=== PATIENT | male | born 1945 | race Caucasian/White ===

== ENCOUNTER 2019-06-16 15:56 | Emergency (ER) | payer MEDICARE ==
[2019-06-16 16:39] VITALS: TEMP 97.8
[2019-06-16 17:11] LABS: Basophils % (A) 0 %; Eosinophils # (A) 0.1 k/uL (0-0.7); Eosinophils % (A) 2 %; HCT 48.9 % (39.0-53.0); HGB 15.7 gm/dL (13.0-17.5); Lymphocytes # (A) 1.3 k/uL (1.0-4.8); Lymphocytes % (A) 22 %; MCH 29.5 pg (25.0-35.0); MCHC 32.1 g/dL (31.0-37.0); MCV 92.2 fL (80.0-100.0); Mean Platelet Volume 8.4; Monocytes # (A) 0.4 k/uL (0-1.0); Monocytes % (A) 7 %; Neutrophils # (A) 3.8 k/uL (1.3-7.7); Neutrophils % (A) 65 %; Platelet Count 235 k/uL (150-450); RBC 5.31 m/uL (4.30-5.90); RDW 13.2 % (11.5-15.5); WBC 5.9 k/uL (3.8-10.6)
[2019-06-16 17:23] LABS: Appearance,Urine Clear (Clear); Bilirubin,Urine Negative (Negative); Blood,Urine Negative (Negative); Color,Urine Yellow; Glucose,Urine (UA) Negative (Negative); Ketones,Urine Negative (Negative); Leukocyte Esterase,Urine Negative (Negative); Nitrite,Urine Negative (Negative); PH, Urine 5.5 (5.0-8.0); Protein,Urine Trace (Negative); Urobilinogen,Urine <2.0 mg/dL (<2.0)
[2019-06-16 17:26] LABS: Albumin 4.4 g/dL (3.5-5.0); Calcium 9.1 mg/dL (8.4-10.2); Partial Thromboplastin Time 28.2 sec (22.0-30.0); Potassium 4.3 mmol/L (3.5-5.1); Prothrombin Time 10.3 sec (9.0-12.0); Total Bilirubin 0.7 mg/dL (0.2-1.3); Total Protein 7.1 g/dL (6.3-8.2)
--- NOTE | 2019-06-16 17:27 | ED ---
Recheck HPI - General Source: patient Mode of arrival: ambulatory Limitations: no limitations <Coleen Alegre - Last Filed: 06/16/19 17:26> <Ranjit Lepe - Last Filed: 06/16/19 18:18> - General Chief Complaint: Recheck/Abnormal Lab/Rx Stated Complaint: poss heart murmur - History of Present Illness Initial Comments: Patient sent from PCPs office for EKG changes, no chest pain shortness of breath. He went to physician's office for diarrhea, dehydration concerns Labs sent (Coleen Alegre) - Related Data Allergies Allergy/AdvReac Type Severity Reaction Status Date / Time No Known Allergies Allergy Verified 06/16/19 16:39 Review of Systems ROS Other: All systems not noted in ROS Statement are negative. <Coleen Alegre - Last Filed: 06/16/19 17:26> ROS Other: All systems not noted in ROS Statement are negative. <Ranjit Lepe - Last Filed: 06/16/19 18:18> ROS Statement: Those systems with pertinent positive or pertinent negative responses have been documented in the HPI. Past Medical History Past Medical History: No Reported History History of Any Multi-Drug Resistant Organisms: None Reported Past Surgical History: Hernia Repair Past Psychological History: No Psychological Hx Reported Smoking Status: Never smoker Past Alcohol Use History: Occasional Past Drug Use History: None Reported <Coleen Alegre - Last Filed: 06/16/19 17:26> General Exam Limitations: no limitations <Coleen Alegre - Last Filed: 06/16/19 17:26> Course Vital Signs 06/16/19 16:35 Temperature 97.8 F Pulse Rate 72 Respiratory 20 Rate Blood Pressure 171/98 O2 Sat by Pulse 99 Oximetry Medical Decision Making - Lab Data Result diagrams: 06/16/19 16:40 <Coleen Alegre - Last Filed: 06/16/19 17:26> - Lab Data Result diagrams: 06/16/19 16:40 06/16/19 16:40 <Ranjit Lepe - Last Filed: 06/16/19 18:18> - Lab Data Lab Results 06/16/19 06/16/19 06/16/19 Range/Units 16:40 16:40 16:40 WBC 5.9 (3.8-10.6) k/uL RBC 5.31 (4.30-5.90) m/uL Hgb 15.7 (13.0-17.5) gm/dL Hct 48.9 (39.0-53.0) % MCV 92.2 (80.0-100.0) fL MCH 29.5 (25.0-35.0) pg MCHC 32.1 (31.0-37.0) g/dL RDW 13.2 (11.5-15.5) % Plt Count 235 (150-450) k/uL Neutrophils % 65 % Lymphocytes % 22 % Monocytes % 7 % Eosinophils % 2 % Basophils % 0 % Neutrophils # 3.8 (1.3-7.7) k/uL Lymphocytes # 1.3 (1.0-4.8) k/uL Monocytes # 0.4 (0-1.0) k/uL Eosinophils # 0.1 (0-0.7) k/uL Basophils # 0.0 (0-0.2) k/uL PT 10.3 (9.0-12.0) sec INR 1.0 (<1.2) APTT 28.2 (22.0-30.0) sec Sodium 139 (137-145) mmol/L Potassium 4.3 (3.5-5.1) mmol/L Chloride 108 H (98-107) mmol/L Carbon Dioxide 23 (22-30) mmol/L Anion Gap 8 mmol/L BUN 24 H (9-20) mg/dL Creatinine 1.06 (0.66-1.25) mg/dL Est GFR (CKD-EPI)AfAm 81 (>60 ml/min/1.73 sqM) Est GFR (CKD-EPI)NonAf 70 (>60 ml/min/1.73 sqM) Glucose 95 (74-99) mg/dL Calcium 9.1 (8.4-10.2) mg/dL Total Bilirubin 0.7 (0.2-1.3) mg/dL AST 32 (17-59) U/L ALT 24 (4-49) U/L Alkaline Phosphatase 86 (38-126) U/L Troponin I (0.000-0.034) ng/mL Total Protein 7.1 (6.3-8.2) g/dL Albumin 4.4 (3.5-5.0) g/dL Urine Color Urine Appearance (Clear) Urine pH (5.0-8.0) Ur Specific [place] (1.001-1.035) Urine Protein (Negative) Urine Glucose (UA) (Negative) Urine Ketones (Negative) Urine Blood (Negative) Urine Nitrite (Negative) Urine Bilirubin (Negative) Urine Urobilinogen (<2.0) mg/dL Ur Leukocyte Esterase (Negative) 06/16/19 06/16/19 Range/Units 16:40 16:40 WBC (3.8-10.6) k/uL RBC (4.30-5.90) m/uL Hgb (13.0-17.5) gm/dL Hct (39.0-53.0) % MCV (80.0-100.0) fL MCH (25.0-35.0) pg MCHC (31.0-37.0) g/dL RDW (11.5-15.5) % Plt Count (150-450) k/uL Neutrophils % % Lymphocytes % % Monocytes % % Eosinophils % % Basophils % % Neutrophils # (1.3-7.7) k/uL Lymphocytes # (1.0-4.8) k/uL Monocytes # (0-1.0) k/uL Eosinophils # (0-0.7) k/uL Basophils # (0-0.2) k/uL PT (9.0-12.0) sec INR (<1.2) APTT (22.0-30.0) sec Sodium (137-145) mmol/L Potassium (3.5-5.1) mmol/L Chloride (98-107) mmol/L Carbon Dioxide (22-30) mmol/L Anion Gap mmol/L BUN (9-20) mg/dL Creatinine (0.66-1.25) mg/dL Est GFR (CKD-EPI)AfAm (>60 ml/min/1.73 sqM) Est GFR (CKD-EPI)NonAf (>60 ml/min/1.73 sqM) Glucose (74-99) mg/dL Calcium (8.4-10.2) mg/dL Total Bilirubin (0.2-1.3) mg/dL AST (17-59) U/L ALT (4-49) U/L Alkaline Phosphatase (38-126) U/L Troponin I <0.012 (0.000-0.034) ng/mL Total Protein (6.3-8.2) g/dL Albumin (3.5-5.0) g/dL Urine Color Yellow Urine Appearance Clear (Clear) Urine pH 5.5 (5.0-8.0) Ur Specific [place] 1.030 (1.001-1.035) Urine Protein Trace H (Negative) Urine Glucose (UA) Negative (Negative) Urine Ketones Negative (Negative) Urine Blood Negative (Negative) Urine Nitrite Negative (Negative) Urine Bilirubin Negative (Negative) Urine Urobilinogen <2.0 (<2.0) mg/dL Ur Leukocyte Esterase Negative (Negative) Disposition <Coleen Alegre - Last Filed: 06/16/19 17:26> Is patient prescribed a controlled substance at d/c from ED?: No <Ranjit Lepe - Last Filed: 06/16/19 18:18> Clinical Impression: Diarrhea, Enteritis Disposition: HOME SELF-CARE Condition: Good Instructions (If sedation given, give patient instructions): Gastroenteritis (ED), Dehydration (ED), Acute Diarrhea (ED) Referrals: None,Stated [Primary Care Provider] - 1-2 days
[2019-06-16 18:26] VITALS: BP 142/73; PULSE 76; RESP 16
== END 2019-06-16 18:24 | disposition home or self-care (01) ==
LOC: EC 15:56
DX: K52.9 Noninfective gastroenteritis and colitis, unspecified (principal)
CPT/HCPCS: 36415; 80053; 81003; 84484; 85025; 85610; 85730; 93005; 99284

== ENCOUNTER 2023-12-22 10:01 | Observation (INO) | payer MEDICARE ==
--- NOTE | 2023-12-22 11:13 | ED ---
Neuro HPI - General Chief Complaint: Neuro Symptoms/Deficit Stated Complaint: Slurred speech Time Seen by Provider: 12/22/23 11:11 Source: patient, family, RN notes reviewed Mode of arrival: wheelchair Limitations: no limitations - History of Present Illness Is the patient presenting with stroke symptoms?: No Initial Comments: 78-year-old male presenting with chief complaint of slurred speech x 5 days. He also reports involuntary jerking movements of his arms and trouble with his memory since Sunday as well. He has never had this before. Denies headache, numbness, tingling, weakness of extremities, vision changes. He takes Keppra for seizure disorder, states he has been on this for 3 years without any change of dose. Denies any recent change in medications. Does not take any psych medications. He follows with neurologist Dr. Davis. Past medical history also includes hyperlipidemia and hypertension. - Related Data Home Medications: Home Medications Medication Instructions Recorded Confirmed ALPRAZolam [Xanax] 0.25 mg PO DIRECTED PRN 12/22/23 12/22/23 Aspirin EC [Ecotrin Low Dose] 81 mg PO DAILY 12/22/23 12/22/23 Atorvastatin [Lipitor] 40 mg PO DAILY 12/22/23 12/22/23 levETIRAcetam [Keppra] 500 mg PO BID 12/22/23 12/22/23 lisinopriL [Zestril] 5 mg PO DAILY 12/22/23 12/22/23 Allergies/Adverse Reactions: Allergies Allergy/AdvReac Type Severity Reaction Status Date / Time No Known Allergies Allergy Verified 12/22/23 15:29 Review of Systems ROS Statement: Those systems with pertinent positive or pertinent negative responses have been documented in the HPI. ROS Other: All systems not noted in ROS Statement are negative. General Exam - General Exam Comments Initial Comments: Visual Physical Exam Vital signs reviewed General: Well-appearing, nontoxic, no acute distress. Head: Normocephalic, atraumatic Eyes: PERRLA, EOMI ENT: Airway patent Chest: Nonlabored breathing Skin: No visual rash, normal skin tone Neuro: Alert and oriented 3 Musculoskeletal: No gross abnormalities Limitations: no limitations General appearance: alert, in no apparent distress, other (Patient has intermittent spastic movement of right upper extremity and facial muscles during examination) Head exam: Present: atraumatic, normocephalic, normal inspection Eye exam: Present: normal appearance, PERRL, EOMI. Absent: scleral icterus, conjunctival injection, periorbital swelling ENT exam: Present: normal exam, mucous membranes moist Neck exam: Present: normal inspection. Absent: tenderness, meningismus, lymphadenopathy Respiratory exam: Present: normal lung sounds bilaterally. Absent: respiratory distress, wheezes, rales, rhonchi, stridor Cardiovascular Exam: Present: regular rate, normal rhythm, normal heart sounds. Absent: systolic murmur, diastolic murmur, rubs, gallop, clicks Extremities exam: Present: normal inspection, full ROM (Full range of motion and strength in all extremities), normal capillary refill. Absent: tenderness, pedal edema, joint swelling, calf tenderness Neurological exam: Present: alert, oriented X3, CN II-XII intact Psychiatric exam: Present: normal affect, normal mood Skin exam: Present: warm, dry, intact, normal color. Absent: rash Stroke MDM - Lab Data Result diagrams: 12/22/23 11:38 12/22/23 11:38 Lab Results 12/22/23 12/22/23 12/22/23 Range/Units 11:38 11:38 11:38 WBC 7.8 (3.8-10.6) k/uL RBC 4.80 (4.30-5.90) m/uL Hgb 14.4 (13.0-17.5) gm/dL Hct 45.2 (39.0-53.0) % MCV 94.3 (80.0-100.0) fL MCH 30.0 (25.0-35.0) pg MCHC 31.8 (31.0-37.0) g/dL RDW 13.0 (11.5-15.5) % Plt Count 221 (150-450) k/uL MPV 9.8 Neutrophils % 73 % Lymphocytes % 17 % Monocytes % 6 % Eosinophils % 2 % Basophils % 0 % Neutrophils # 5.7 (1.3-7.7) k/uL Lymphocytes # 1.3 (1.0-4.8) k/uL Monocytes # 0.5 (0-1.0) k/uL Eosinophils # 0.2 (0-0.7) k/uL Basophils # 0.0 (0-0.2) k/uL PT (10.0-12.5) sec INR (<1.2) APTT (22.0-30.0) sec Sodium 138 (137-145) mmol/L Potassium 4.6 (3.5-5.1) mmol/L Chloride 108 H (98-107) mmol/L Carbon Dioxide 26 (22-30) mmol/L Anion Gap 4 mmol/L BUN 22 H (9-20) mg/dL Creatinine 1.06 (0.66-1.25) mg/dL Est GFR (CKD-EPI)AfAm 78 (>60 ml/min/1.73 sqM) Est GFR (CKD-EPI)NonAf 67 (>60 ml/min/1.73 sqM) Glucose 89 (74-99) mg/dL Plasma Lactic Acid Hector 0.8 (0.7-2.0) mmol/L Calcium 9.3 (8.4-10.2) mg/dL Total Bilirubin 0.8 (0.2-1.3) mg/dL AST 41 (17-59) U/L ALT 28 (4-49) U/L Alkaline Phosphatase 82 (38-126) U/L Total Protein 6.5 (6.3-8.2) g/dL Albumin 4.0 (3.5-5.0) g/dL 12/22/23 Range/Units 11:38 WBC (3.8-10.6) k/uL RBC (4.30-5.90) m/uL Hgb (13.0-17.5) gm/dL Hct (39.0-53.0) % MCV (80.0-100.0) fL MCH (25.0-35.0) pg MCHC (31.0-37.0) g/dL RDW (11.5-15.5) % Plt Count (150-450) k/uL MPV Neutrophils % % Lymphocytes % % Monocytes % % Eosinophils % % Basophils % % Neutrophils # (1.3-7.7) k/uL Lymphocytes # (1.0-4.8) k/uL Monocytes # (0-1.0) k/uL Eosinophils # (0-0.7) k/uL Basophils # (0-0.2) k/uL PT 10.9 (10.0-12.5) sec INR 1.0 (<1.2) APTT 26.4 (22.0-30.0) sec Sodium (137-145) mmol/L Potassium (3.5-5.1) mmol/L Chloride (98-107) mmol/L Carbon Dioxide (22-30) mmol/L Anion Gap mmol/L BUN (9-20) mg/dL Creatinine (0.66-1.25) mg/dL Est GFR (CKD-EPI)AfAm (>60 ml/min/1.73 sqM) Est GFR (CKD-EPI)NonAf (>60 ml/min/1.73 sqM) Glucose (74-99) mg/dL Plasma Lactic Acid Hector (0.7-2.0) mmol/L Calcium (8.4-10.2) mg/dL Total Bilirubin (0.2-1.3) mg/dL AST (17-59) U/L ALT (4-49) U/L Alkaline Phosphatase (38-126) U/L Total Protein (6.3-8.2) g/dL Albumin (3.5-5.0) g/dL - Medical Decision Making I completed the quick note portion of this chart signed Betsy Garcia PA-C Was pt. sent in by a medical professional or institution (, FANNY, NURSES EDUCATOR, urgent care, hospital, or detention...) When possible be specific @ -No Did you speak to anyone other than the patient for history (EMS, parent, family, police, friend...)? What history was obtained from this source @ -Patient's supplemented history Did you review nursing and triage notes (agree or disagree)? Why? @ -I reviewed and agree with nursing and triage notes Were old charts reviewed (outside hosp., previous admission, EMS record, old EKG, old radiological studies, urgent care reports/EKG's, detention records)? Report findings @ -No old charts were reviewed Differential Diagnosis (chest pain, altered mental status, abdominal pain women, abdominal pain men, vaginal bleeding, weakness, fever, dyspnea, syncope, headache, dizziness, GI bleed, back pain, seizure, CVA, palpatations, mental health, musculoskeletal)? @ -Differential CVA Tardive dyskinesia, ischemic stroke, hemorrhagic stroke, brain tumor, atypical migraine, Wernicke's encephalopathy, seizure, multiple sclerosis, meningitis, encephalitis, hypoglycemia, Guillain-Ford, electrolytes disturbance, myasthenia gravis.... This is not meant to be an all-inclusive list EKG interpreted by me (3pts min.). @ -None X-rays interpreted by me (1pt min.). @ -None done CT interpreted by me (1pt min.). @ -CT of brain reveals no acute intracranial process U/S interpreted by me (1pt. min.). @ -None done What testing was considered but not performed or refused? (CT, X-rays, U/S, labs)? Why? @ -None What meds were considered but not given or refused? Why? @ -None Did you discuss the management of the patient with other professionals (professionals i.e. , PA, NURSES EDUCATOR, lab, RT, psych nurse, high school social science teacher, stockroom supervisor, teacher, founder and chief executive officer, case repairer)? Give summary @ -I spoke with Dr. Rowe who is the on-call neurologist. He recommends admission at this time for further evaluation. Case was then discussed with Dr. Herring from [facility] who accepts admission at this time with neurology consultation. Was smoking cessation discussed for >3mins.? @ -No Was critical care preformed (if so, how long)? @ -No Were there social determinants of health that impacted care today? How? (Homele ssness, low income, unemployed, alcoholism, drug addiction, transportation, low edu. Level, literacy, decrease access to med. care, group home, rehab)? @ -No Was there de-escalation of care discussed even if they declined (Discuss DNR or withdrawal of care, Hospice)? DNR status @ -No What co-morbidities impacted this encounter? (DM, HTN, Smoking, COPD, CAD, Cancer, CVA, ARF, Chemo, Hep., AIDS, mental health diagnosis, sleep apnea, morbid obesity)? @ -None Was patient admitted / discharged? Hospital course, mention meds given and route, prescriptions, significant lab abnormalities, going to OR and other pertinent info. @ -Patient was admitted. Patient was seen and evaluated for dyskinesia x 5 days . Patient reports he has been having slurred speech and involuntary facial and upper extremity jerking. Denies new medications or changes in dose of Keppra. Neuro examination is unremarkable. Lab work including CBC, CMP, coags, and lactic acid were largely unremarkable. CT of brain revealed no acute intracranial process. I spoke with Dr. Rowe who is the on-call neurologist and he recommends admission at this time for further evaluation. Case was then discussed with Dr. Herring of [facility] who agrees to accept admission at this time with neurology consultation. Loading dose of aspirin was given. TSH, creatinine kinase, UA, urine drug screen, and serum alcohol level were ordered and pending at the time of admission. This was discussed with patient and his and they are agreeable to plan. Undiagnosed new problem with uncertain prognosis? @ -No Drug Therapy requiring intensive monitoring for toxicity (Heparin, Nitro, Insulin, Cardizem)? @ -No Were any procedures done? @ -No Diagnosis/symptom? @ -Dyskinesia Acute, or Chronic, or Acute on Chronic? @ -Acute Uncomplicated (without systemic symptoms) or Complicated (systemic symptoms)? @ -Uncomplicated Side effects of treatment? @ -No Exacerbation, Progression, or Severe Exacerbation? @ -No Poses a threat to life or bodily function? How? (Chest pain, [place], [place], pneumonia, PE, COPD, DKA, ARF, appy, cholecystitis, CVA, Diverticulitis, Homicidal, Suicidal, threat to staff... and all critical care pts) @ -Low likelihood Past Medical History Past Medical History: Hyperlipidemia, Hypertension, Seizure Disorder History of Any Multi-Drug Resistant Organisms: None Reported Past Surgical History: Hernia Repair Additional Past Surgical History / Comment(s): aortic vavle replacement Past Psychological History: No Psychological Hx Reported Past Alcohol Use History: Occasional Past Drug Use History: None Reported Course Vital Signs 12/22/23 12/22/23 12/22/23 10:04 12:46 14:23 Temperature 97.5 F L Pulse Rate 65 64 66 Respiratory 16 18 20 Rate Blood Pressure 159/101 139/89 146/95 O2 Sat by Pulse 98 96 96 Oximetry Disposition Clinical Impression: Dyskinesia Disposition: ADMITTED IP TO THIS [facility] Referrals: Rupesh Hinojosa MD [Primary Care Provider] - 1-2 days Time of Disposition: 16:16
[2023-12-22 11:56] LABS: Basophils % (A) 0 %; Eosinophils # (A) 0.2 k/uL (0-0.7); Eosinophils % (A) 2 %; HCT 45.2 % (39.0-53.0); HGB 14.4 gm/dL (13.0-17.5); Lymphocytes # (A) 1.3 k/uL (1.0-4.8); Lymphocytes % (A) 17 %; MCHC 31.8 g/dL (31.0-37.0); MCV 94.3 fL (80.0-100.0); Mean Platelet Volume 9.8; Monocytes # (A) 0.5 k/uL (0-1.0); Monocytes % (A) 6 %; Neutrophils # (A) 5.7 k/uL (1.3-7.7); Neutrophils % (A) 73 %; Platelet Count 221 k/uL (150-450); WBC 7.8 k/uL (3.8-10.6)
[2023-12-22 12:09] LABS: ALT 28 U/L (4-49); AST 41 U/L (17-59); African American GFR (CKD) 78 (>60 ml/min/1.73 sqM); Alkaline Phosphatase 82 U/L (38-126); Anion Gap 4 mmol/L; Blood Urea Nitrogen 22 mg/dL (9-20); Calcium 9.3 mg/dL (8.4-10.2); Carbon Dioxide 26 mmol/L (22-30); Chloride 108 mmol/L (98-107); Glucose 89 mg/dL (74-99); Non-African American GFR(CKD) 67 (>60 ml/min/1.73 sqM); Potassium 4.6 mmol/L (3.5-5.1); Sodium 138 mmol/L (137-145); Total Bilirubin 0.8 mg/dL (0.2-1.3); Total Protein 6.5 g/dL (6.3-8.2)
[2023-12-22 12:24] LABS: Partial Thromboplastin Time 26.4 sec (22.0-30.0); Prothrombin Time 10.9 sec (10.0-12.5)
--- NOTE | 2023-12-22 14:14 | CT ---
EXAMINATION TYPE: CT brain wo con CT DLP: 1238.4 mGycm, Automated exposure control for dose reduction was used. DATE OF EXAM: 12/22/2023 1:47 PM COMPARISON: None. CLINICAL INDICATION:Male, 78 years old with history of neuro deficit, acute, persistent, Slurred spee ch, neuro deficit, acute, persistent. TECHNIQUE: Brain: Axial CT images of the brain were obtained with coronal and sagittal reformats created and rev iewed. Contrast used: None. Oral contrast used: None. FINDINGS: Brain: Extra-axial spaces: No abnormal extra-axial fluid collections. Ventricular system: Within normal limits Cerebral parenchyma: No acute intraparenchymal hemorrhage or mass effect. The valero-white junction is well differentiated. Cerebellum: Unremarkable. Mass effect: No evidence of midline shift. Intracranial vasculature: Atherosclerotic calcifications of the intracranial vessels. Soft tissues: Normal. Calvarium/osseous structures: No depressed skull fracture. Paranasal sinuses and mastoid air cells: Mild scattered paranasal sinus disease. Visualized orbits: Orbital contents are intact. IMPRESSION: No acute intracranial process.
[2023-12-22] MEDS ORDERED: NALOXONE 0.4 MG/ML 1 ML VIAL IV PRN (16:03)
[2023-12-22] MEDS: ASPIRIN 81 MG PO STA (17:00)
[2023-12-22 17:55] LABS: Alcohol <10 mg/dL; Creatine Kinase 406 U/L (55-170)
[2023-12-22] MEDS: levETIRAcetam 500 MG TAB PO SCH (21:12)
[2023-12-23] MEDS: lisinopriL 5 MG TAB PO SCH (08:55)
[2023-12-23] MEDS ORDERED: ACETAMINOPHEN TAB 325 MG TAB PO PRN (10:30)
[2023-12-23] MEDS: ALPRAZolam 0.25 MG TAB PO PRN (11:52)
[2023-12-23] MEDS: ENOXAPARIN 40 MG/0.4 ML SYRINGE SQ SCH (11:52)
--- NOTE | 2023-12-23 12:52 | P.CNNES ---
History of Present Illness Consult date: 12/23/23 Requesting physician: Betsy Garcia Reason for Consult: dyskinesia History of Present Illness: This is a 78-year-old gentleman with history of seizure who presents emergency department because of slurred speech, involuntary movement and trouble with memory. Some of the history is obtained from medical record. According to the patient she just came because of slurred speech but patient did not seem like a reliable historian. I attempted to contact his via his phone but no response and it went to the voice message. ED note the patient has been having slurred speech for 5 days with involuntary jerking movement of his arm and trouble with his memory since this past Sunday. He does not have any headache numbness tingling weakness vision change. Patient states that he had seizure for the last 2 to 3 years and been on Keppra and it seems he is on Keppra 500 mg twice daily the same dose and had no further seizure. He stated that he had a seizure since his aortic valve replacement about 2.5 years ago. Per nurse today she feels his abdomen movement is better when he is relaxed. I spoke with the physician lpn medical assistant ED yesterday regarding this case and she stated the patient did not have any antipsychotic medication exposure that she was notified by the patient or any family members. Some of the work-up during this hospital visit consisted of: Patient is afebrile. CBC with differential is unremarkable TSH is 1.40 CK level is 406 Sodium, glucose, calcium are within normal limits Plasma lactic acid vein is 0.8 Serum alcohol level is less than 10 CT head is reported as no acute intracranial process. I personally reviewed the CT and agree with the report Review of Systems Limited but the pertinent positive and negative as per HPI. Past Medical History Past Medical History: Hyperlipidemia, Hypertension, Seizure Disorder History of Any Multi-Drug Resistant Organisms: None Reported Past Surgical History: Hernia Repair Additional Past Surgical History / Comment(s): aortic valve replacement Past Psychological History: No Psychological Hx Reported Smoking Status: Never smoker Past Alcohol Use History: Occasional Past Drug Use History: None Reported Medications and Allergies Home Medications Medication Instructions Recorded Confirmed Type ALPRAZolam [Xanax] 0.25 mg PO DIRECTED PRN 12/22/23 12/22/23 History Aspirin EC [Ecotrin Low Dose] 81 mg PO DAILY 12/22/23 12/22/23 History Atorvastatin [Lipitor] 40 mg PO DAILY 12/22/23 12/22/23 History levETIRAcetam [Keppra] 500 mg PO BID 12/22/23 12/22/23 History lisinopriL [Zestril] 5 mg PO DAILY 12/22/23 12/22/23 History Allergies Allergy/AdvReac Type Severity Reaction Status Date / Time No Known Allergies Allergy Verified 12/22/23 15:29 Physical Examination - Vital Signs Vital Signs: Vital Signs Temp Pulse Pulse Resp BP BP Pulse Ox 12/23/23 07:00 97.7 F 66 125/77 96 12/23/23 02:21 97.9 F 76 17 147/94 96 12/22/23 20:44 98.4 F 64 18 126/71 95 12/22/23 18:21 98.1 F 71 20 160/84 97 12/22/23 17:31 98.4 F 68 20 124/89 96 12/22/23 14:23 66 20 146/95 96 12/22/23 12:46 64 18 139/89 96 Intake and Output 12/22/23 12/23/23 12/23/23 22:59 06:59 14:59 Intake Total 118 Balance 118 Intake: Oral 118 Other: Voiding Method Toilet # Voids 0 0 Weight 104.326 kg GENERAL: The patient is sitting in a recliner chair and is not in acute distress. HENT: Supple neck. NEUROLOGICAL: Higher mental function: The patient is awake, alert, oriented to self, place and time. Patient is following commands. No aphasia and no neglect. Cranial nerves: The pupils are round, equal and reactive to light and accommodation. Visual fisher are full to confrontation throughout. Extraocular movement is intact no nystagmus is noted. Facial sensation is normal to touch throughout. The facial strength is normal throughout. Hearing is moderately decreased bilaterally to hand rub. Tongue is midline and moved [id number] without any difficulty. No dysarthria is noted. Shoulder shrug is normal christopher aterally. Motor: Gait: Had flexed neck posture but gait strides normal and not swaying towards one side or other. The strength is 5 over 5 throughout. Normal tone and bulk. No resting tremor or jerking of extremities. Cerebellum: Normal finger to nose bilaterally. Sensation: Sensation is normal to touch throughout. Reflexes (right/left): 2+ throughout except ankles are 1+. Plantars are downgoing bilaterally. Results - Laboratory Findings CBC and BMP: 12/22/23 11:38 12/22/23 11:38 Abnormal Lab Findings: Abnormal Labs 12/22/23 12/22/23 11:38 17:29 Chloride 108 H BUN 22 H Creatine Kinase 406 H Assessment and Plan Assessment: This is a 78-year-old gentleman history of seizure who is on Keppra for the last 2 and half years and has not had any further seizures who presents because of dysarthria for 5 days prior to present to the hospital, involuntary jerking movement of his arm and memory issue since this past Sunday. CT of the head is unremarkable. Acute dysarthria with involuntary movement and memory issues: Unsure exact etiology. Rule out seizure vs stroke. His involuntary movement is improved today compared to yesterday. Patient is concerned he is having ?dyskinesia from Keppra which he has been on for years. History of seizure and is on Keppra 500mg bid for last 2.5 years and he stated no further seizures History of aortic valve replace. Plan: Ordered MRI of the brain with and without Also ordered Routine EEG. Patient Keppra 500 mg twice daily is resumed. I will not modify the medication or change to something else until we get the workup. His involuntary movement is better today compared to yesterday according to the nurse even on my examination I felt there is not drastic involuntary movement that is appreciable. Blood ammonia level, hemoglobin A1c, vitamin B12 and folate level. Continue neurochecks Will defer the rest of the medical management to primary team I attempted to contact the patient's through his phone but it went to voice message. Will try again later. Thank you for the consultation The plan discussed with the patient and his nurse. Dr. Borrego will resume neurology service tomorrow A.M. Time with Patient: Greater than 30
--- NOTE | 2023-12-23 14:02 | P.HPIM ---
History of Present Illness H&P Date: 12/23/23 History of present illness; 78-year-old male patient with past medical history significant for seizures who presented to ER with initial complaint of slurred speech, involuntary movements of upper extremity and memory impairment going on for on and off for about a week. Patient stated that he has slurred speech off and on and also had involuntary movements of the upper extremities for the last 1 week, which is aggravated by anxiety. Patient denied any headache, vision changes, hearing changes, hallucinations, fever, chills, weakness numbness to extremities, any recent change in medications, denies any productive cough, sore throat, shortness of breath, chest pain, palpitation, nausea vomiting diarrhea constipation abdominal pain dysuria urgency frequency. Patient afebrile, pulse rate 64, respiratory rate 18, blood pressure 126/71, 95% on room air on presentation. CBC was unremarkable. Coagulation workup was negative. CMP also unremarkable with mildly elevated BUN 22. CPK was mildly elevated 406. TSH normal. Serum alcohol level was negative. CT head did not show any acute process. Patient admitted to internal medicine service REVIEW OF SYSTEMS: CONSTITUTIONAL: No fever, no malaise, no fatigue. HEENT: No recent visual problems or hearing problems. Denied any sore throat. CARDIOVASCULAR: No chest pain, orthopnea, PND, no palpitations, no syncope. PULMONARY: No shortness of breath, no cough, no hemoptysis. GASTROINTESTINAL: No diarrhea, no nausea, no vomiting, no abdominal pain. NEUROLOGICAL: No headaches, no weakness, no numbness. HEMATOLOGICAL: Denies any bleeding or petechiae. GENITOURINARY: Denies any burning micturition, frequency, or urgency. MUSCULOSKELETAL/RHEUMATOLOGICAL: Denies any joint pain, swelling, or any muscle pain. ENDOCRINE: Denies any polyuria or polydipsia. The rest of the 14-point review of systems is negative. PHYSICAL EXAMINATION: GENERAL: The patient is alert and oriented x3, not in any acute distress. Well developed, well nourished. HEENT: Pupils are round and equally reacting to light. EOMI. No scleral icterus. No conjunctival pallor. Normocephalic, atraumatic. No pharyngeal erythema. No thyromegaly. CARDIOVASCULAR: S1 and S2 present. No murmurs, rubs, or gallops. PULMONARY: Chest is clear to auscultation, no wheezing or crackles. ABDOMEN: Soft, nontender, nondistended, normoactive bowel sounds. No palpable organomegaly. MUSCULOSKELETAL: No joint swelling or deformity. EXTREMITIES: No cyanosis, clubbing, or pedal edema. NEUROLOGICAL: Gross neurological examination did not reveal any focal deficits. SKIN: No rashes. Assessment and plan Slurred speech: Involuntary upper extremity movements: History of seizures: Patient presented with slurred speech, involuntary jerking movements of upper extremities, on and off memory issues for about a week. CT head negative. Monitor with neurochecks. Continue Keppra. Neurology consultedrecommended to continue home Keppra dose 500 mg twice daily, blood ammonia level, HbA1c, vitamin B12 and folate level. EEG and MRI brain with and without contrast pending. Elevated CPK: CPK 408 on presentation Hold statin Monitor renal function Recheck CPK. History of aortic valve replacement Hypertension Hyperlipidemia DVT prophylaxis. Subcutaneous Lovenox Dictation was produced using [employer] dictation software. please excuse any grammatical, word or spelling errors. Past Medical History Past Medical History: Hyperlipidemia, Hypertension, Seizure Disorder History of Any Multi-Drug Resistant Organisms: None Reported Past Surgical History: Hernia Repair Additional Past Surgical History / Comment(s): aortic valve replacement Past Psychological History: No Psychological Hx Reported Smoking Status: Never smoker Past Alcohol Use History: Occasional Past Drug Use History: None Reported Medications and Allergies Home Medications Medication Instructions Recorded Confirmed Type ALPRAZolam [Xanax] 0.25 mg PO DIRECTED PRN 12/22/23 12/22/23 History Aspirin EC [Ecotrin Low Dose] 81 mg PO DAILY 12/22/23 12/22/23 History Atorvastatin [Lipitor] 40 mg PO DAILY 12/22/23 12/22/23 History levETIRAcetam [Keppra] 500 mg PO BID 12/22/23 12/22/23 History lisinopriL [Zestril] 5 mg PO DAILY 12/22/23 12/22/23 History Allergies Allergy/AdvReac Type Severity Reaction Status Date / Time No Known Allergies Allergy Verified 12/22/23 15:29 Physical Exam Vitals: Vital Signs Temp Pulse Pulse Resp BP BP Pulse Ox 12/23/23 07:00 97.7 F 66 125/77 96 12/23/23 02:21 97.9 F 76 17 147/94 96 12/22/23 20:44 98.4 F 64 18 126/71 95 12/22/23 18:21 98.1 F 71 20 160/84 97 12/22/23 17:31 98.4 F 68 20 124/89 96 12/22/23 14:23 66 20 146/95 96 Intake and Output 12/22/23 12/23/23 12/23/23 22:59 06:59 14:59 Intake Total 118 Balance 118 Intake: Oral 118 Other: Voiding Method Toilet # Voids 0 0 Weight 104.326 kg Results CBC & Chem 7: 12/22/23 11:38 12/22/23 11:38 Labs: Abnormal Lab Results - Last 24 Hours (Table) 12/22/23 Range/Units 17:29 Creatine Kinase 406 H (55-170) U/L Thrombosis Risk Factor Assmnt - Choose All That Apply Any of the Below Risk Factors Present?: Yes Each Factor Represents 1 point: Obesity (BMI >25) Other Risk Factors: Yes Each Risk Factor Represents 3 Points: Age 75 years or older Thrombosis Risk Factor Assessment Total Risk Factor Score: 4 Thrombosis Risk Factor Assessment Level: Moderate Risk
[2023-12-23] MEDS: ASPIRIN 81 MG PO SCH (17:41)
[2023-12-23 21:31] LABS: Appearance,Urine Clear (Clear); Bilirubin,Urine Negative (Negative); Blood,Urine Negative (Negative); Color,Urine Colorless; Glucose,Urine (UA) Negative (Negative); Ketones,Urine Negative (Negative); Leukocyte Esterase,Urine Negative (Negative); Nitrite,Urine Negative (Negative); PH, Urine 5.5 (5.0-8.0); Protein,Urine Negative (Negative); Specific Gravity,Urine 1.013 (1.001-1.035); Urobilinogen,Urine <2.0 mg/dL (<2.0)
[2023-12-23 21:45] LABS: Amphetamine Screen,Urine Not Detected (NotDetected); Barbiturate Screen,Urine Not Detected (NotDetected); Benzodiazepines Screen,Urine Detected (NotDetected); Cocaine Screen,Urine Not Detected (NotDetected); Methadone Screen, Urine Not Detected (NotDetected); Opiate Screen,Urine Not Detected (NotDetected); Oxycodone Screen, Urine Not Detected (NotDetected); Phencyclidine Screen,Urine Not Detected (NotDetected); Tricyclic Antidepressant,Urine Not Detected (NotDetected); Urn Cannabinoid Scrn Not Detected (NotDetected)
[2023-12-24 07:53] VITALS: RESP 16
--- NOTE | 2023-12-24 09:08 | MR ---
EXAMINATION TYPE: MR brain wo/w con DATE OF EXAM: 12/24/2023 8:58 AM CLINICAL INDICATION:Male, 78 years old with history of seizure; PHH, Seizure. COMPARISON: 12/22/2023 TECHNIQUE: Multi planar, multi sequence imaging was performed through the brain including: T1, T2, In version recovery, susceptibility weighted imaging and gradient echo imaging and Diffusion weighted im aging. The patient was then given intravenous contrast and multi planar, T1 fat-saturation images wer e obtained. IV Contrast: 10.5 cc Gadavist FINDINGS: Mild cerebral atrophy with proportional dilation of ventricular system. Diffusion-weighted imaging s hows no evidence of restricted diffusion to suggest acute/subacute infarct. Intracranial arterial markus w voids are maintained. Midline structures show no abnormality. Scattered foci of high T2 signal inte nsity are seen within the periventricular white matter. The susceptibility weighted images do not rev eal any evidence for micro-hemorrhage. After administration of gadolinium, no abnormal enhancement is seen. The bone marrow signal is within normal limits. Paranasal sinuses and mastoid air cells: No significant paranasal sinus disease. Trace high T2 signal in the left mastoid air cells. Visualized orbits: Orbital contents are intact. IMPRESSION: 1. No evidence of intracranial mass, acute/subacute infarct, or abnormal enhancement. 2. Nonspecific white matter changes, likely related to small vessel ischemic disease.
[2023-12-24 10:47] LABS: Basophils # (A) 0.02 X 10*3/uL (0.00-0.10); Basophils % (A) 0.3 %; Eosinophils # (A) 0.18 X 10*3/uL (0.04-0.35); Eosinophils % (A) 2.5 %; HCT 44.6 % (39.6-50.0); HGB 14.6 g/dL (13.0-17.0); Lymphocytes # (A) 1.15 X 10*3/uL (0.90-5.00); Lymphocytes % (A) 16.2 %; MCH 29.7 pg (27.0-32.0); MCHC 32.7 g/dL (32.0-37.0); MCV 90.8 FL (80.0-97.0); Mean Platelet Volume 11.5 FL (9.5-12.2); Monocytes # (A) 0.52 X 10*3/uL (0.20-1.00); Monocytes % (A) 7.3 %; NRBC Per 100 WBC 0 X 10*3/uL (0.00-0.01); Neutrophils # (A) 5.22 X 10*3/uL (1.80-7.70); Neutrophils % (A) 73.4 %; Platelet Count 229 X 10*3/uL (140-440); RBC 4.91 X 10*6/uL (4.40-5.60); WBC 7.11 X 10*3/uL (4.50-10.00)
[2023-12-24 10:55] LABS: BUN/Creat Ratio 16.82 Ratio (12.00-20.00); Blood Urea Nitrogen 18.5 mg/dL (9.0-27.0); Calcium 9.1 mg/dL (8.7-10.3); Carbon Dioxide 24.9 mmol/L (21.6-31.8); Chloride 106 mmol/L (96-109); Glucose 101 mg/dL (70-110); Magnesium 1.9 mg/dL (1.5-2.4); Potassium 4.4 mmol/L (3.5-5.5); Sodium 141 mmol/L (135-145)
--- NOTE | 2023-12-24 13:30 | EEG ---
ELECTROENCEPHALOGRAM REPORT PREAMBLE: This is a 78-year-old male who came with slurred speech, involuntary movements, and trouble with memory. This study performed to rule out any seizure activity. CURRENT MEDICATIONS: 1. Zestril. 2. Tylenol. 3. Xanax. 4. Aspirin. 5. Lovenox. 6. Keppra. EEG FINDINGS: This is a 21-channel digital EEG recorded with video component, utilizing 10/20 international system with referential and bipolar montages. Background consists of well-developed, moderately well regulated, somewhat low amplitude 9 hertz alpha. Background is posterior dominant and seems to be reactive to eye opening and closing. Photic driving response was not seen. Drowsiness was seen with appearance of bilaterally symmetric theta frequency rhythm. Deeper stages of sleep were not seen. No focal or generalized epileptiform activity was seen. IMPRESSION: This is a normal awake and drowsy EEG. No focal, lateralized, or epileptiform activity was seen. MMODL / IJN: [id number] /
[2023-12-24 14:59] VITALS: BP 116/63; PULSE 71; TEMP 98.5
--- NOTE | 2023-12-24 16:08 | P.PN ---
Subjective Progress Note Date: 12/24/23 Patient initially seen by Dr. Frantz Rowe. Please refer to his note for details. Patient is a 78-year-old male with recurrent dysarthria and involuntary movement in the past 1 week (noticed by patient's since last 12/17/2023), although patient believes symptoms started sometimes before that. Patient and his were both present. Patient's mentioned that patient has history of seizure x 3 about 3 and half years ago. After his first seizure, he did not seek medical attention. 1 to 2 weeks later, he had a second seizure when he was laying in the bed. And then he had a third seizure shortly after, on the same day. He states that he bit his tongue with the third seizure. [facility] was [facility] to [facility], where he was diagnosed with seizure disorder, started on Keppra 500 mg twice daily, and also found to have problem with the aortic valve. He underwent aortic valve replacement subsequently. Patient has been doing very well on Keppra 500 mg twice daily, never had a seizure thereafter. He follows up with neurologist, who has repeatedly discussed with him about stopping Keppra, but as he has been doing very well, with no side effects, therefore he declined to go off Keppra. Now patient has presented with restlessness, possible tardive dyskinesia, some slurred speech, change in behavior for over 1 week. He was driving erratically, taking off his head, then putting it back on, doing repeatedly and very restless. No seizures. He is also somewhat agitated, as per his 's statement, who has been to him for last 59 years.. He first went to [facility] urgent care and was diagnosed with dehydration. He was given couple doses of Xanax without improvement and also given a prescription of Xanax. Patient has not filled Xanax prescription and has not received any since he was in the urgent care about a week ago. Some of the work-up during this hospital visit consisted of: Patient is afebrile. CBC with differential is unremarkable TSH is 1.40 CK level is 406 Sodium, glucose, calcium are within normal limits Plasma lactic acid vein is 0.8 Serum alcohol level is less than 10 CT head is reported as no acute intracranial process. I personally reviewed the CT and agree with the report Objective - Vital Signs Vital signs: Vital Signs Temp 97.6 F 12/24/23 07:00 Pulse 60 12/24/23 07:00 Resp 16 12/24/23 07:00 BP 133/78 12/24/23 07:00 Pulse Ox 95 12/24/23 07:00 FiO2 Intake & Output 12/23/23 12/24/23 12/24/23 18:59 06:59 18:59 Intake Total 354 0 Balance 354 0 Intake: Oral 354 0 Other: Voiding Method Toilet Toilet # Voids 3 0 # Bowel Movements 0 - Exam Mental status, speech and language functions are normal. I did not notice any obvious aphasia or dysarthria. He is somewhat restless, does appear to have some akathisia versus tardive dyskinesia. Cranial nerves are normal, visual fisher are full, face is symmetric and tongue protrudes midline. On muscle strength testing, there is no pronator drift and the strength is normal in arms or legs. No ataxia for [id number] testing. Sensory to touch is equal. - Labs CBC & Chem 7: 12/24/23 06:43 12/24/23 06:43 Labs: Abnormal Lab Results - Last 24 Hours (Table) 12/23/23 Range/Units 21:04 U Benzodiazepines Scrn Detected H (NotDetected) Assessment and Plan Assessment: This is a 78-year-old gentleman history of seizure who is on Keppra for the last 2 and half years and has not had any further seizures who presents because of dysarthria for 5 days prior to present to the hospital, akathisia versus tardive dyskinesia and memory issue since this past Sunday12/17/2023. CT of the head and MRI of the brain are unremarkable. Acute dysarthria with involuntary movement and memory issues: Unsure exact etiology. No structural abnormality noted. No evidence of stroke or seizures. Patient is concerned he is having ?dyskinesia from Keppra which he has been on for years. History of seizure and is on Keppra 500mg bid for last 2.5 years and he stated no further seizures History of aortic valve replace. Plan: * MRI of the brain with and without contrast revealed no evidence of intracranial mass, acute/subacute infarct or abnormal enhancement. Nonspecific white matter changes, likely related to small vessel ischemic disease. I personally reviewed MRI of the brain and agree with the findings. * Routine EEG was normal awake and drowsy. No focal, lateralized or epileptiform activity was seen. * Patient believes his symptoms could be related to side effect of Keppra. Patient is not taking any other medication that would produce the symptoms. He is on lisinopril, Lipitor, which doubt will produce the symptoms. Patient wants to go off Keppra. He will decrease by 250 mg weekly until off. He will go down to 250 mg in the morning, 500 mg at night for 7 days, then 250 mg twice daily for the following 7 days and then 250 mg at bedtime for following 7 days and then stop. * Patient was informed of no driving for 6 months because he is planning to go off seizure medication. He should also avoid climbing ladders, operating dangerous machinery or unsupervised swimming. He will follow-up with his neurologist next week and they can modify his Keppra taper. * Blood ammonia level < 9, hemoglobin A1c 5.7, vitamin B12 479 and folate level 14.6, all normal. Urine drug screen only positive for benzodiazepine. * Neurologically clear for discharge and follow-up with neurologist outpatient. * Patient recommended to continue his aspirin, statins and will lisinopril.
[2023-12-24] MEDS ORDERED: levETIRAcetam 500 MG TAB PO SCH (21:00)
[2023-12-25] MEDS ORDERED: levETIRAcetam 250 MG TAB PO SCH (09:00)
== END 2023-12-24 15:58 | disposition home or self-care (01) ==
LOC: EC 10:01 → 6NMEDSUR 16:03
PROVIDERS: ADMIT Internal Medicine; ATTEND Internal Medicine
DX: R29.818 Other symptoms and signs involving the nervous system (principal); R47.1 Dysarthria and anarthria; G24.9 Dystonia, unspecified; R47.81 Slurred speech; R79.89 Other specified abnormal findings of blood chemistry; Z95.2 Presence of prosthetic heart valve; I10 Essential (primary) hypertension; E78.5 Hyperlipidemia, unspecified; G40.909 Epilepsy, unspecified, not intractable, without status epilepticus; Z79.899 Other long term (current) drug therapy; Z79.82 Long term (current) use of aspirin
CPT/HCPCS: 96372 ×2; 99285; 36415; 95816; 93005; 82552; 80053; 80048; 84443; 82607; 82140; 82550 ×2; 82746; 83605; 83735; 85025 ×2; 85610; 85730; 81003; 80306; 83036; 70450; 70553; G0378 ×3; G0480; J1650 ×2; A9585; 80320